=== PATIENT | female | born 1950 | race Caucasian/White ===

== ENCOUNTER → 2016-11-30 | Outpatient (CLI) | payer MEDICARE, OTHER ==
[~2016-11-30] MED LIST: ASPIRIN81 MG PO; CLARITIN10 MG PO; ESTRACE1 MG PO; FISH OIL1 GM PO; HYDROCHLOROTH12.5 MG PO; KLONOPIN0.5 MG PO; MOBIC15 MG PO; PRILOSEC20 MG PO; PRINIVIL10 MG PO; SINGULAIR10 M1 PO; SYNTHROID100 MCG PO
== END | disposition short-term general hospital (02) ==
LOC: CLORTH 07:54
DX: Z47.1 Aftercare following joint replacement surgery (principal); Z96.652 Presence of left artificial knee joint

== ENCOUNTER → 2017-01-11 | Outpatient (CLI) | payer MEDICARE, OTHER | END | disposition short-term general hospital (02) | LOC: CLORTH 11:13 | DX: Z47.1 Aftercare following joint replacement surgery (principal); Z96.652 Presence of left artificial knee joint ==